=== PATIENT | female | born 1980 | race Hispanic/Latino ===

== ENCOUNTER 2021-02-23 17:45 | Emergency (ER) | payer SELFPAY ==
[~2021-02-23] VITALS: Ht 157.5 cm; Wt 67.1 kg
[2021-02-23] MEDS ORDERED: ONDANSETRON HCL 4 MG ORAL DISINTEGRATING TAB PO ONE (18:15)
[2021-02-23] MEDS ORDERED: FAMOTIDINE 20 MG TAB PO ONE (18:15)
[2021-02-23] MEDS ORDERED: ONDANSETRON HCL 4 MG ORAL DISINTEGRATING TAB ONE (18:25)
[2021-02-23] MEDS ORDERED: FAMOTIDINE 20 MG TAB ONE (18:25)
[2021-02-23] MEDS ORDERED: ONDANSETRON ODT4 MG PO (18:39)
[2021-02-23] MEDS ORDERED: PEPCID20 MG PO (18:39)
== END 2021-02-23 18:39 | disposition home or self-care (01) ==
LOC: FSED 17:54
DX: R10.13 Epigastric pain (principal); K29.70 Gastritis, unspecified, without bleeding; R11.2 Nausea with vomiting, unspecified
CPT/HCPCS: 80048; 80076; 81003; 81025; 85025; 99283; Q0162

== ENCOUNTER → 2021-03-02 | Day surgery (SDC) | payer OTHER ==
[~2021-03-02] MED LIST: FENTANYL CITRATE/PF 100MCG/2 ML INJ ONE; LIDOCAINE HCL 2% LOCAL INJ 5 ML SDV VIAL INJ ONE; METOCLOPRAMIDE HCL 10 MG/2ML VIAL ONE; MIDAZOLAM HCL 2 MG/2 ML VIAL ONE; MULTI-VITAMIN1 EACH PO; ONDANSETRON ODT4 MG PO; PEPCID20 MG PO; PROPOFOL IV EMULSION 10 MG/ML 20 ML VIAL ONE
[2021-03-02 13:55] VITALS: BP 111/66
== END | disposition home or self-care (01) ==
LOC: OR 12:14
PROVIDERS: ATTEND Internal Medicine Gastroenterology
DX: K20.90 Esophagitis, unspecified without bleeding (principal); K29.70 Gastritis, unspecified, without bleeding; K29.80 Duodenitis without bleeding; B96.81 Helicobacter pylori [H. pylori] as the cause of diseases classified elsewhere; K21.9 Gastro-esophageal reflux disease without esophagitis; Z87.898 Personal history of other specified conditions; R19.7 Diarrhea, unspecified; K59.00 Constipation, unspecified; Z68.27 Body mass index [BMI] 27.0-27.9, adult; Z01.812 Encounter for preprocedural laboratory examination
CPT/HCPCS: 43239; 81025; 88305; 88312; J2001; J2250; J2704; J2765; J3010

== ENCOUNTER 2024-04-05 20:32 | Emergency (ER) | payer OTHER ==
[~2024-04-05] VITALS: Ht 157.5 cm; Wt 83.5 kg
[~2024-04-05 20:32] MED LIST changes: -FENTANYL CITRATE/PF 100MCG/2 ML INJ ONE; +LEXAPRO10 MG PO; -LIDOCAINE HCL 2% LOCAL INJ 5 ML SDV VIAL INJ ONE; -METOCLOPRAMIDE HCL 10 MG/2ML VIAL ONE; -MIDAZOLAM HCL 2 MG/2 ML VIAL ONE; -PROPOFOL IV EMULSION 10 MG/ML 20 ML VIAL ONE; +VITAMIN D PO
[2024-04-05] MEDS: FAMOTIDINE 20 MG/2 ML VIAL IV ONE (22:17)
[2024-04-05] MEDS: ONDANSETRON HCL INJ 2MG/ML 2ML 2 MG/ML VIAL IV ONE (22:17)
[2024-04-05] MEDS ORDERED: OMEPRAZOLE40 MG PO (22:23)
[2024-04-05] MEDS ORDERED: ONDANSETRON ODT4 MG PO (22:23)
[2024-04-05 22:27] VITALS: PULSE 84; RESP 16; TEMP 98.3; O2SAT 98
== END 2024-04-05 22:27 | disposition home or self-care (01) ==
LOC: FSED 20:38
DX: R20.2 Paresthesia of skin (principal); K29.60 Other gastritis without bleeding; R10.13 Epigastric pain; R03.0 Elevated blood-pressure reading, without diagnosis of hypertension
CPT/HCPCS: 80053; 81003; 84484; 85025; 93005; 99283; J2405